=== PATIENT | female | born 1990 | race African-American/Black ===

== ENCOUNTER 2019-01-07 10:30 | Emergency (ER) | payer OTHER ==
[2019-01-07 10:45] VITALS: BP 125/94; PULSE 85; TEMP 98.5; BMI 24.5
[2019-01-07] MEDS ORDERED: IBUPROFEN 400 MG TABLET (FP) PO ONE ×2 (11:45→11:47)
[2019-01-07] MEDS ORDERED: CYCLOBENZAPRINE HCL 10 MG TABLET (FP) PO ONE (11:45)
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
[2019-01-07] MEDS ORDERED: CYCLOBENZAPRINE HCL 10 MG TABLET (FP) ONE (11:47)
== END 2019-01-07 12:11 | disposition home or self-care (01) ==
LOC: FER 10:30
DX: S16.1XXA Strain of muscle, fascia and tendon at neck level, initial encounter (principal); X58.XXXA Exposure to other specified factors, initial encounter; Y93.89 Activity, other specified; Y92.89 Other specified places as the place of occurrence of the external cause
CPT/HCPCS: 99283-25